=== PATIENT | male | born 1955 | race Caucasian/White ===

== ENCOUNTER 2019-04-24 20:25 | Emergency (ER) | payer BC ==
[~2019-04-24] VITALS: Ht 175.3 cm; Wt 124.7 kg
[2019-04-24 20:45] VITALS: BP 141/89
--- NOTE | 2019-04-24 20:48 | NUR ---
TO LOBBY A/W BED AMBULATORY
--- NOTE | 2019-04-24 21:29 | NUR ---
PT AMBULATED TO BED 1
--- NOTE | 2019-04-24 21:42 | NUR ---
PT WOUND IRRIGATED WITH NORMAL SALINE
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
[2019-04-24] MEDS ORDERED: LIDOCAINE MPF 1% 10 MG/ML VIAL INJ ONE (22:05)
[2019-04-24] MEDS ORDERED: KETOROLAC 60 MG/2 ML VIAL IM ONE (22:05)
[2019-04-24 23:20] VITALS: BP 141/89
--- NOTE | 2019-04-24 23:20 | NUR ---
Patient discharged with v/s stable. Written and verbal after care instructions given and explained. Patient alert, oriented and verbalized understanding of instructions. Ambulatory with steady gait. All questions addressed prior to discharge. ID band removed. Patient advised to follow up with PMD. Rx of BACITRACIN, IBUPROFEN given. Patient educated on indication of medication including possible reaction and side effects. Opportunity to ask questions provided and answered.
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
== END 2019-04-24 23:20 | disposition home or self-care (01) ==
LOC: MED 20:25
DX: S51.012A Laceration without foreign body of left elbow, initial encounter (principal); S10.91XA Abrasion of unspecified part of neck, initial encounter; Y04.2XXA Assault by strike against or bumped into by another person, initial encounter; Y93.89 Activity, other specified; Y92.89 Other specified places as the place of occurrence of the external cause; Y99.8 Other external cause status
CPT/HCPCS: 12002; 73080; 90471; 90715; 96372; 99283; J1885; J2001

== ENCOUNTER 2020-12-10 16:32 | Emergency (ER) | payer OTHER, BC ==
[~2020-12-10] VITALS: Ht 175.3 cm; Wt 91.6 kg
[2020-12-10 16:40] VITALS: BP 137/61
--- NOTE | 2020-12-10 17:49 | NUR ---
PT MARIA TERESA TO [facility]
[2020-12-10 18:18] LABS: BASOPHILS % (AUTO) 0.3 % (0.0-2.0); EOSINOPHILS # (AUTO) 0.1 K/uL (0-0.4); EOSINOPHILS % (AUTO) 1.6 % (0.0-4.0); HEMATOCRIT 50.6 % (36-52); HEMOGLOBIN 17.3 g/dL (12.0-18.0); LYMPHOCYTES # (AUTO) 1.8 K/uL (2.0-11.5); LYMPHOCYTES % (AUTO) 22.9 % (20.5-51.1); MEAN CORPUSCULAR HEMOGLOBIN 32 pg (27-31); MEAN CORPUSCULAR HGB CONC 34 g/dL (33-37); MEAN CORPUSCULAR VOLUME 93.5 fL (80-94); MONOCYTES # (AUTO) 0.6 K/uL (0.8-1.0); MONOCYTES % (AUTO) 7.7 % (1.7-9.3); NEUTROPHILS # (AUTO) 5.4 K/uL (1.8-7.7); NEUTROPHILS % (AUTO) 67.5 % (42.2-75.2); PLATELET COUNT (AUTO) 250 K/uL (140-450); RED BLOOD CELL COUNT(AUTO) 5.42 MIL/uL (4.20-6.10); RED CELL DISTRIBUTION WIDTH 14.7 % (11.6-13.7)
--- NOTE | 2020-12-10 19:02 | NUR ---
CONSENT OBTAINED FOR CT
[2020-12-10 19:15] LABS: ALBUMIN 3.6 g/dL (3.4-5.0); ANION GAP 12.8 (8-16); CARBON DIOXIDE 24.9 mmol/L (21-32); CREATININE 1.1 mg/dL (0.6-1.3); POTASSIUM 3.7 mmol/L (3.5-5.1); TOTAL BILIRUBIN 0.7 mg/dL (0.0-1.0)
[2020-12-10 21:17] VITALS: BP 137/61
--- NOTE | 2020-12-10 21:17 | NUR ---
Patient discharged with v/s stable. Written and verbal after care instructions given and explained. Patient verbalized understanding. Ambulatory with steady gait. All questions addressed prior to discharge. Advised to follow up with PMD.
== END 2020-12-10 21:17 | disposition home or self-care (01) ==
LOC: MED 16:32
DX: S62.637A Displaced fracture of distal phalanx of left little finger, initial encounter for closed fracture (principal); M54.5 Low back pain; M54.2 Cervicalgia; V89.2XXA Person injured in unspecified motor-vehicle accident, traffic, initial encounter; Y92.410 Unspecified street and highway as the place of occurrence of the external cause; Y93.89 Activity, other specified; Y99.8 Other external cause status
CPT/HCPCS: 36415; 70450; 71260; 72125; 73130; 73562; 73630; 80053; 85025; 99285